=== PATIENT | female | born 1980 | race Caucasian/White ===

== ENCOUNTER 2018-05-18 18:22 | Emergency (ER) | payer MEDICAID ==
[~2018-05-18] VITALS: Ht 154.9 cm; Wt 39.7 kg
[~2018-05-18 18:22] MED LIST: NO HOME MEDS; PERM60CR19 TP
[2018-05-18 20:53] LABS: URINE HCG NEGATIVE (NEG)
[2018-05-18] MEDS ORDERED: DICL100G15 TOP ×2 (21:20→21:21)
[2018-05-18] MEDS ORDERED: DICL50TA8 PO (21:20)
[2018-05-18 21:40] VITALS: BP 120/84
== END 2018-05-18 21:41 | disposition home or self-care (01) ==
LOC: ER 18:23
DX: R07.81 Pleurodynia (principal); M54.2 Cervicalgia; J45.909 Unspecified asthma, uncomplicated; F12.90 Cannabis use, unspecified, uncomplicated; Z98.890 Other specified postprocedural states; Z88.0 Allergy status to penicillin; Z79.899 Other long term (current) drug therapy
CPT/HCPCS: 71101; 72040; 81025; 99284

== ENCOUNTER 2023-04-30 06:36 | Emergency (ER) | payer MEDICAID ==
[~2023-04-30] VITALS: Ht 154.9 cm; Wt 46.6 kg
[~2023-04-30 06:36] MED LIST changes: +DICL100G15 TOP
[2023-04-30 06:42] VITALS: BP 121/73; PULSE 70; RESP 18; TEMP 97.4; O2SAT 99
[2023-04-30 07:21] LABS: BASOPHILS # (AUTO) 0.1 X10'3 (0-0.2); BASOPHILS % (AUTO) 0.6 % (0-1); EOSINOPHILS # (AUTO) 0.1 X10'3 (0-0.9); EOSINOPHILS % (AUTO) 0.8 % (0-6); HEMATOCRIT 40.5 % (35.0-45.0); HEMOGLOBIN 14.1 g/dl (12.0-16.0); LYMPHOCYTES # (AUTO) 2.3 X10'3 (1.1-4.8); LYMPHOCYTES % (AUTO) 21.5 % (21-51); MEAN CORPUSCULAR HEMOGLOBIN 33.1 PG (27.0-31.0); MEAN CORPUSCULAR HGB CONC 34.9 g/dL (33.0-36.5); MEAN CORPUSCULAR VOLUME 94.9 FL (78-98); MEAN PLATELET VOLUME 8.6 FL (7.4-10.4); MONOCYTES # (AUTO) 0.9 X10'3 (0-0.9); MONOCYTES % (AUTO) 7.9 % (2-12); NEUTROPHILS # (AUTO) 7.4 X10'3 (1.8-7.7); NEUTROPHILS % (AUTO) 69.2 % (42-75); PLATELET COUNT 234 X10'3 (140-440); RED BLOOD COUNT 4.27 X10'6 (4.20-5.60); RED CELL DISTRIBUTION WIDTH 13.5 % (11.5-14.5); WHITE BLOOD COUNT 10.8 X10'3 (4.5-11.0)
[2023-04-30 07:37] LABS: ALANINE AMINOTRANSFERASE 13 U/L (12-78); ALBUMIN 3.5 G/DL (3.4-5.0); ALKALINE PHOSPHATASE 55 IU/L (46-116); ANION GAP 9 (8-16); ASPARTATE AMINO TRANSFERASE 20 U/L (10-37); BILIRUBIN,TOTAL 0.3 MG/DL (0.1-1.0); BLOOD UREA NITROGEN 14 MG/DL (7-18); BUN/CREATININE RATIO 16.3 (10.0-20.0); CALCIUM 8.3 MG/DL (8.5-10.1); CHLORIDE 105 MMOL/L (99-107); CREATININE 0.86 MG/DL (0.40-0.90); GLUCOSE 102 MG/DL (70-104); LIPASE 62 U/L (16-77); SODIUM 143 MMOL/L (135-145); TOTAL CARBON DIOXIDE 28.7 MMOL/L (24-32); TOTAL PROTEIN 7.1 G/DL (6.4-8.2); eCRCL 63 ML/MIN; eGFR 73 ML/MIN
== END 2023-04-30 09:41 | disposition left against medical advice (07) ==
LOC: ER 06:37
DX: R10.12 Left upper quadrant pain (principal); R11.2 Nausea with vomiting, unspecified; Z53.21 Procedure and treatment not carried out due to patient leaving prior to being seen by health care provider
CPT/HCPCS: 36415; 80053; 83690; 85025; 99281

== ENCOUNTER 2024-02-13 03:58 | Emergency (ER) | payer MEDICAID ==
[~2024-02-13] VITALS: Ht 154.9 cm; Wt 44.4 kg
[2024-02-13 04:01] VITALS: BP 103/73; PULSE 82; RESP 14; TEMP 98.1; O2SAT 98
[2024-02-13] MEDS ORDERED: BISA-78 PO (05:09)
[2024-02-13] MEDS ORDERED: POLY119P2 PO (05:09)
[2024-02-13] MEDS ORDERED: bisacodyl 5mg tablet.DR PO ONE (05:10)
== END 2024-02-13 05:13 | disposition home or self-care (01) ==
LOC: ER 03:59
DX: K59.00 Constipation, unspecified (principal); J45.909 Unspecified asthma, uncomplicated; F41.9 Anxiety disorder, unspecified; F12.90 Cannabis use, unspecified, uncomplicated; Z88.0 Allergy status to penicillin; Z98.890 Other specified postprocedural states
CPT/HCPCS: 99282